=== PATIENT | male | born 1990 | race Two or more races ===

== ENCOUNTER 2018-08-07 03:22 | Emergency (ER) | payer SELFPAY ==
[~2018-08-07] VITALS: Ht 172.7 cm; Wt 68.0 kg
--- NOTE | 2018-08-07 03:46 | NUR ---
TO ER BED 1 C/O BRIGHT RED RECTAL BLEED X 1 DAY. AA/OX 1. "I HAVE A HISTORY OF THIS." NO S/S SOB. SKIN PINK, WARM, DRY. PEDAL PULSES PRESENT. ACTIVE BOWEL SOUNDS NOTED. MOVES ALL EXTREMITIES WELL. AMBULATED TO BED WITH STABLE GAIT. NAD. VSS. STABLE CONDITITON. WILL CONTINUE TO MONITOR.
[2018-08-07] MEDS: IV NS 0.9% 1,000 ML BAG IV ONE (04:17)
[2018-08-07] MEDS ORDERED: ONDANSETRON HCL/PF 4 MG/2 ML VIAL ONE (04:19)
[2018-08-07 04:21] LABS: BASOPHILS # (AUTO) 0.1 /CMM (0.0-0.2); BASOPHILS % (AUTO) 0.8 % (0.0-2.0); HEMATOCRIT 47 % (39-51); HEMOGLOBIN 15.4 g/dL (13.5-17.5); LYMPHOCYTES # (AUTO) 2.2 /CMM (0.8-4.8); LYMPHOCYTES % (AUTO) 27.4 % (20.0-44.0); MEAN CORPUSCULAR HGB CONC 33 g/dl (31.0-36.0); MEAN CORPUSCULAR VOLUME 93 fL (80-96); MONOCYTES # (AUTO) 0.5 /CMM (0.1-1.30); MONOCYTES % (AUTO) 5.6 % (2.0-12.0); NEUTROPHILS # (AUTO) 5.3 /CMM (1.8-8.9); NEUTROPHILS % (AUTO) 65.2 % (43.0-81.0); PLATELET COUNT (AUTO) 197 /CMM (150-450); RED BLOOD CELL COUNT(AUTO) 5.01 MIL/uL (4.5-6.0); WHITE BLOOD COUNT (AUTO) 8.1 K/uL (4.3-11.0)
[2018-08-07] MEDS: ONDANSETRON HCL/PF - ER 4 MG/2 ML VIAL IV ONE (04:22)
[2018-08-07 04:33] LABS: INR 0.96 (0.87-1.13)
[2018-08-07 04:37] LABS: ALBUMIN 4.3 g/dL (3.4-5.0); BILIRUBIN,TOTAL 0.6 mg/dL (0.2-1.0); CALCIUM, SERUM 9.2 mg/dL (8.5-10.1); POTASSIUM 3.9 mmol/L (3.5-5.1); TOTAL PROTEIN, SERUM 7.8 g/dL (6.4-8.2)
--- NOTE | 2018-08-07 05:13 | NUR ---
Patient discharged to home in stable condition. Written and verbal after care instructions given. Patient verbalizes understanding of instruction. IV removed. Catheter intact and site benign. Pressure and 4x4 applied to site. No bleeding noted. AMBULATED WITH STEADY GAIT. INSTRUCTED NOT TO OPERATE OR DRIVE HEAVY MACHINERY.
[2018-08-07 05:15] VITALS: BP 114/81
== END 2018-08-07 05:15 | disposition home or self-care (01) ==
LOC: ER 03:22
DX: K92.1 Melena (principal); R42 Dizziness and giddiness; R53.1 Weakness
CPT/HCPCS: 36415; 80053; 85025; 85610; 93005; 96361; 96374; 99285; A4606; J2405; J7030; Z7610